=== PATIENT | male | born 1960 | race Caucasian/White ===

== ENCOUNTER 2024-02-11 20:39 | Emergency (ER) | payer OTHER ==
[2024-02-11] MEDS ORDERED: NA CHLORIDE 0.9% 1,000 ML ONE (21:38)
--- NOTE | 2024-02-11 21:47 | RAD REPORT ---
EXAM DESCRIPTION: Cande Single View02/11/2024 9:33 pm CLINICAL HISTORY: CHEST PAIN COMPARISON: No comparisons TECHNIQUE: Portable AP view of the chest. FINDINGS: The lungs are clear. No pneumothorax or effusion. The cardiomediastinal contours are unre markable. IMPRESSION: No acute cardiopulmonary process.
--- NOTE | 2024-02-11 21:54 | RAD REPORT ---
EXAM DESCRIPTION: CT - Head Brain Wo Cont - 02/11/2024 9:29 pm CLINICAL HISTORY: DIZZINESS COMPARISON: No comparisons TECHNIQUE: Noncontrast head CT images were obtained without IV contrast. Multiplanar reformats were generated and reviewed. All CT scans are performed using dose optimization technique as appropriate and may include automated exposure control or mA/KV adjustment according to patient size. FINDINGS: No intracranial hemorrhage, mass, or edema. Midline structures are unremarkable. Normal ventricular caliber for age. Bonds-white matter differentiation is preserved, without evidence of acute infarct. No abnormal extra- axial fluid collections. Mastoid air cells and visualized portions of the paranasal sinuses are clear. No acute bony findings. Deformities along the nasal bones bilaterally suggesting sequelae of remote t rauma. IMPRESSION: No evidence of an acute intracranial process.
[2024-02-11 22:05] LABS: Absolute Eosinophils 0.1 K/uL (0-0.5); Absolute Monocytes 0.5 K/uL (0.1-1.3); Absolute Neutrophil 4.7 K/uL (1.8-8.0); Basophils % 0.7 % (0-1.3); Eosinophils % 1.7 % (0-4.4); Hematocrit 43.8 % (39.6-49.0); MCH 30.8 pg (27.0-35.0); MCHC 34.4 g/dL (32.0-36.0); MCV 89.6 fL (80-100); MPV 6.5 fL (7.6-11.3); Monocytes % 7.2 % (3.3-12.3); Neutrophils % 74.4 % (41.7-73.7); Platelets 203 thou/uL (152-406); RBC Red Blood Cell Count 4.88 M/uL (4.33-5.43); Red Cell Distribution Width 13.3 % (12.1-15.2)
[2024-02-11 22:19] LABS: PT Prothrombin Time 11.7 SECONDS (9.5-12.5); Protime INR 1.07
[2024-02-11 22:26] LABS: Albumin 3.8 g/dL (3.4-5.0); Albumin/Globulin Ratio 1.3 (1.1-1.8); Anion Gap 8.8 mEq/L (5.0-15.0); Bilirubin Direct 0.2 mg/dL (0-0.2); Bilirubin Indirect, Calculated 0.5 mg/dL (0.2-0.8); Bilirubin Total 0.7 mg/dL (0.2-1.0); Globulin 2.9 g/dL (2.3-3.5); Magnesium 2.2 mg/dL (1.6-2.4); Potassium 3.8 mEq/L (3.5-5.1); Protein, Total 6.7 g/dL (6.4-8.2); Troponin High Sensitivity 12.3 pg/mL (<58.9)
[2024-02-12 00:29] LABS: Band Neutrophils 3 % (0-1); Blood Morphology Comment NOT SEEN (NOT SEEN); Differential Total Cells Count 100; Lymphocytes 9 % (15-42); Monocytes 2 % (0-10); Platelet Estimate ADEQ; Reactive Lymphocytes 9 %; Segmented Neutrophils 77 % (40-80)
--- NOTE | 2024-02-12 00:37 | ER ---
Nurse's Notes [facility] Name: Stanislav Rivas Age: 63 yrs Sex: Male : 1960 Arrival Date: 02/11/2024 Time: 20:39 Bed 16 Private MD: Diagnosis: Near syncope Presentation: 02/10 20:56 Chief complaint: Patient states: [place] [facility] [place], while using the 4 restroom I got dizzy. Purchased the item I wanted. I went home checked my bp, it was 170/90. I noticed my left arm felt cold, I have a slight chest pain. 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 Coronavirus screen: At this time, the client does not indicate any symptoms associated with coronavirus-19. Ebola Screen: No symptoms or risks identified at this time. Initial Sepsis Screen: Does the patient meet any 2 criteria? No. Patient's initial sepsis screen is negative. Does the patient have a suspected source of infection? No. Patient's initial sepsis screen is negative. Risk Assessment: Do you want to hurt yourself or someone else? Patient reports no desire to harm self or others. Onset of symptoms was February 11, 2024. Transition of care: patient was not received from another setting of care. 20:56 Method Of Arrival: Ambulatory [facility] 20:56 Acuity: LANCE 2 jb4 Historical: - Allergies: 21:00 No Known Allergies; jb4 - PMHx: 21:00 HTN; jb4 - PSHx: 21:00 None; jb4 - Immunization history:: Adult Immunizations up to date. - Infectious Disease History:: Denies. - Social history:: Smoking status: Patient denies any tobacco usage or history of. Screenin:44 [facility] ED Fall Risk Assessment (Adult) History of falling in the last 3 months, ha1 including since admission No falls in past 3 months (0 pts) Confusion or Disorientation No (0 pts) Intoxicated or Sedated No (0 pts) Impaired Gait No (0 pts) Mobility Assist Device Used No (0 pt) Altered Elimination No (0 pt) Score/Fall Risk Level 0 - 2 = Low Risk Oriented to surroundings, Maintained a safe environment, Hourly rounding (assess needs \T\ fall precautionary measures) done. Abuse screen: Denies threats or abuse. Denies injuries from another. Nutritional screening: No deficits noted. Tuberculosis screening: No symptoms or risk factors identified. Assessment: 20:56 General: Appears comfortable, Behavior is calm, cooperative. Pain: Denies pain. Neuro: ha1 Level of Consciousness is awake, alert, obeys commands, Oriented to person, place, time, situation, Reports dizziness. Cardiovascular: Capillary refill < 3 seconds Patient's skin is warm and dry. Respiratory: Airway is patent Respiratory effort is even, unlabored, Respiratory pattern is regular, symmetrical. GI: No signs and/or symptoms were reported involving the gastrointestinal system. Derm: Skin is pink, warm \T\ dry. Derm: Musculoskeletal: Circulation, motion, and sensation intact. Range of motion: intact in all extremities. 21:43 Reassessment: Patient and/or family updated on plan of care and expected duration. Pain ha1 level reassessed. Patient is alert, oriented x 3, equal unlabored respirations, skin warm/dry/pink. 22:40 Reassessment: Patient and/or family updated on plan of care and expected duration. Pain ha1 level reassessed. Patient is alert, oriented x 3, equal unlabored respirations, skin warm/dry/pink. DR. SLADE IN THE ROOM. 23:20 Reassessment: Patient and/or family updated on plan of care and expected duration. Pain ha1 level reassessed. Patient is alert, oriented x 3, equal unlabored respirations, skin warm/dry/pink. 02/11 00:20 Reassessment: Patient and/or family updated on plan of care and expected duration. Pain ha1 level reassessed. Patient is alert, oriented x 3, equal unlabored respirations, skin warm/dry/pink. Patient states feeling better. Patient states symptoms have improved. Vital Signs: 02/10 20:56 BP 157 / 82; Pulse 62; Resp 16; Pulse Ox 99% on R/A; Weight 91.63 kg (R); Height 5 ft. jb4 10 in. (R); Pain 11/08; 21:00 BP 139 / 71; Pulse 69; Resp 17 S; Pulse Ox 98% on R/A; ha1 21:55 BP 145 / 91; Pulse 58; Resp 18 S; Pulse Ox 98% ; ha1 22:57 BP 165 / 85; Pulse 62; Resp 18 S; Pulse Ox 96% on R/A; ha1 23:15 BP 150 / 81; Pulse 63; Resp 17 S; Pulse Ox 96% on R/A; ha1 02/11 00:05 BP 173 / 100; Pulse 60; Resp 17 S; Pulse Ox 99% on R/A; ha1 00:49 BP 160 / 93; Pulse 60; Resp 17 S; Temp 97.9; Pulse Ox 97% on R/A; ha1 02/10 20:56 Body Mass Index 28.98 (91.63 kg, 177.8 cm) jb4 02/10 20:56 Pain Scale: Adult jb4 ED Course: 02/09 20:56 Patient has correct armband on for positive identification. Placed in gown. Bed in low ha1 position. Call light in reach. Side rails up X 1. 02/10 20:43 Patient arrived in ED. im 20:48 Brea Slade MD is Attending Physician. sp3 21:00 Triage completed. jb4 21:00 Arm band placed on right wrist. jb4 21:00 Client placed on continuous cardiac and pulse oximetry monitoring. NIBP monitoring ha1 applied. bus driver/monitor on. 21:00 Door closed. Noise minimized. Warm blanket given. Pillow given. ha1 21:10 EKG done, by smt technician. reviewed by Brea Slade MD. cp4 21:20 Saranya Johnston, RN is Primary Nurse. ha1 21:30 Inserted saline lock: 20 gauge in left antecubital area, using aseptic technique. Blood ha1 collected. 21:31 CT Head Brain wo Cont In Process Unspecified. EDMS 21:35 XRAY Chest (1 view) In Process Unspecified. EDMS 21:55 Basic Metabolic Panel Sent. ha1 21:56 CBC with Diff Sent. ha1 21:56 LFT's Sent. ha1 21:56 Magnesium Sent. ha1 21:56 NT PRO-BNP Sent. ha1 21:56 PT-INR Sent. ha1 21:56 Troponin HS Sent. ha1 02/11 00:50 No provider procedures requiring assistance completed. IV discontinued, intact, ha1 bleeding controlled, No redness/swelling at site. Pressure dressing applied. 00:51 Provided Education on: FOLLOW [employer] . ha1 Administered Medications: 02/10 21:30 Drug: NS 0.9% IV 1000 ml IV at 1 bolus Per protocol; 1000 mL bolus Route: IV; Rate: 1 ha1 bolus; Site: left antecubital; 02/11 00:48 Follow up: Response: No adverse reaction; IV Status: Completed infusion; IV Intake: ha1 1000ml Medication: 02/10 22:59 VIS not applicable for this client. ha1 Intake: 02/11 00:48 IV: 1000ml; Total: 1000ml. ha1 Outcome: 00:35 Discharge ordered by sp3 00:50 Discharged to home ambulatory, 1 00:50 Condition: stable 00:50 Discharge instructions given to patient, Instructed on discharge instructions, follow up and referral plans. Demonstrated understanding of instructions, follow-up care, 00:51 Patient left the ED. 1 Signatures: Dispatcher [employer] Morgan Lowe, RN RN jb4 Brea Slade MD MD sp3 Saranya Johnston RN RN ha1 Rosa Giraldo Christina cp4
--- NOTE | 2024-02-12 00:37 | EDPHYS ---
Physician Documentation [facility] Name: Stanislav Rivas Age: 63 yrs Sex: Male : 1960 Arrival Date: 02/11/2024 Time: 20:39 Bed 16 Private MD: ED Physician Brea Slade HPI: 02/10 21:22 This 63 yrs old Male presents to ER via Ambulatory with complaints of General Weakness, sp3 High Blood Pressure, Low heart rate, Blurred Vision. 21:22 63-year-old male with history of hypertension presents with generalized weakness, sp3 dehydration and now resolved left arm heaviness as he put it. 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 Patient definitely thinks he overdid it and then after this while he was at the gas station, he had a near syncopal episode which at that point he decided he needed to come in to get evaluated. All symptoms have now resolved. He denies any headache, neck pain, ongoing chest pain, shortness of breath, back pain, abdominal pain, nausea, vomiting, diarrhea, full syncope, focal neurological deficit including speech changes, weakness, facial droop, memory loss or any other symptoms at this time. Patient denies any illicit drug use, smoking or other substances.. Historical: - Allergies: 21:00 No Known Allergies; jb4 - PMHx: 21:00 HTN; jb4 - PSHx: 21:00 None; jb4 - Immunization history:: Adult Immunizations up to date. - Infectious Disease History:: Denies. - Social history:: Smoking status: Patient denies any tobacco usage or history of. ROS: 21:25 Constitutional: Negative for fever, chills, and weight loss, Eyes: Negative for injury, sp3 pain, redness, and discharge, ENT: Negative for injury, pain, and discharge, Neck: Negative for injury, pain, and swelling, Respiratory: Negative for shortness of breath, cough, wheezing, and pleuritic chest pain, Abdomen/GI: Negative for abdominal pain, nausea, vomiting, diarrhea, and constipation, Back: Negative for injury and pain, MS/Extremity: Negative for injury and deformity, Neuro: Negative for headache, weakness, numbness, tingling, and seizure, Psych: Negative for depression, anxiety, suicide ideation, homicidal ideation, and hallucinations, Allergy/Immunology: Negative for hives, rash, and allergies, Endocrine: Negative for neck swelling, polydipsia, polyuria, polyphagia, and marked weight changes, Hematologic/Lymphatic: Negative for swollen nodes, abnormal bleeding, and unusual bruising, 21:25 All other systems are negative, Exam: 21:25 Constitutional: This is a well developed, well nourished patient who is awake, alert, sp3 and in no acute distress. Head/Face: Normocephalic, atraumatic. Eyes: Pupils equal round and reactive to light, extra-ocular motions intact. Lids and lashes normal. Conjunctiva and sclera are non-icteric and not injected. Cornea within normal limits. Periorbital areas with no swelling, redness, or edema. ENT: Nares patent. No nasal discharge, no septal abnormalities noted. External auditory canals are clear. Oropharynx with no redness, swelling, or masses, exudates, or evidence of obstruction, uvula midline. Mucous membranes moist. Neck: Trachea midline, no thyromegaly or masses palpated, and no cervical lymphadenopathy. Supple, full range of motion without nuchal rigidity, or vertebral point tenderness. No Meningismus. Chest/axilla: Normal chest wall appearance and motion. Nontender with no deformity. No lesions are appreciated. Cardiovascular: Regular rate and rhythm with a normal S1 and S2. No gallops, murmurs, or rubs. Normal PMI, no JVD. No pulse deficits. Respiratory: Lungs have equal breath sounds bilaterally, clear to auscultation and percussion. No rales, rhonchi or wheezes noted. No increased work of breathing, no retractions or nasal flaring. Abdomen/GI: Soft, non-tender, with normal bowel sounds. No distension or tympany. No guarding or rebound. No evidence of tenderness throughout. Back: No spinal tenderness. No costovertebral tenderness. Full range of motion. Skin: Warm, dry with normal turgor. Normal color with no rashes, no lesions, and no evidence of cellulitis. MS/ Extremity: Pulses equal, no cyanosis. Neurovascular intact. Full, normal range of motion. Neuro: Awake and alert, GCS 15, oriented to person, place, time, and situation. Cranial nerves II-XII grossly intact. Motor strength 5/5 in all extremities. Sensory grossly intact. Cerebellar exam normal. Normal gait. Psych: Awake, alert, with orientation to person, place and time. Behavior, mood, and affect are within normal limits. 21:25 ECG was reviewed by the Attending Physician. EKG demonstrates normal sinus rhythm at 64 bpm with normal intervals, normal QRS, normal axis, nonspecific ST's ST changes without evidence of acute ischemia. Vital Signs: 20:56 BP 157 / 82; Pulse 62; Resp 16; Pulse Ox 99% on R/A; Weight 91.63 kg (R); Height 5 ft. jb4 10 in. (R); Pain 11/08; 21:00 BP 139 / 71; Pulse 69; Resp 17 S; Pulse Ox 98% on R/A; ha1 21:55 BP 145 / 91; Pulse 58; Resp 18 S; Pulse Ox 98% ; ha1 22:57 BP 165 / 85; Pulse 62; Resp 18 S; Pulse Ox 96% on R/A; ha1 23:15 BP 150 / 81; Pulse 63; Resp 17 S; Pulse Ox 96% on R/A; ha1 02/11 00:05 BP 173 / 100; Pulse 60; Resp 17 S; Pulse Ox 99% on R/A; ha1 00:49 BP 160 / 93; Pulse 60; Resp 17 S; Temp 97.9; Pulse Ox 97% on R/A; ha1 02/10 20:56 Body Mass Index 28.98 (91.63 kg, 177.8 cm) [facility] 02/10 20:56 Pain Scale: Adult [facility] MDM: 02/10 20:59 Patient medically screened. sp3 21:26 Data reviewed: vital signs, nurses notes, lab test result(s), EKG, radiologic studies. sp3 ED course: 63-year-old male with vague symptoms of generalized weakness and dehydration. Differential diagnosis includes dehydration, acute coronary syndrome, electrolyte abnormality, vagal episode, viral syndrome, among others. I am not highly suspicious for CVA/TIA spectrum, intracranial hemorrhage or other abnormality, sepsis, shock or any other critical process. Workup will be broad and include EKG, chest x-ray, CT scan of the head, and general laboratory values including troponin. If workup is negative, we will safely discharge him home assuming he feels improved after second troponin. Normal saline 1 L bolus to be given. Disposition pending workup and patient course.. 02/10 20:58 Order name: Basic Metabolic Panel; Complete Time: 22:52 sp3 02/10 20:58 Order name: CBC with Diff; Complete Time: 00:34 sp3 02/10 20:58 Order name: LFT's; Complete Time: 22:52 sp3 02/10 20:58 Order name: Magnesium; Complete Time: 22:52 sp3 02/10 20:58 Order name: NT PRO-BNP; Complete Time: 22:52 sp3 02/10 20:58 Order name: PT-INR; Complete Time: 22:52 sp3 02/10 20:58 Order name: Troponin HS; Complete Time: 22:52 sp3 02/10 22:20 Order name: Manual Differential; Complete Time: 00:34 EDMS 02/10 23:30 Order name: Troponin High Sensitivity; Complete Time: 00:34 ha1 02/10 20:58 Order name: XRAY Chest (1 view); Complete Time: 21:55 sp3 02/10 21:12 Order name: CT Head Brain wo Cont; Complete Time: 21:55 sp3 02/10 20:58 Order name: Cardiac monitoring; Complete Time: 21:09 sp3 02/10 20:58 Order name: EKG - Nurse/Tech; Complete Time: 21:09 sp3 02/10 20:58 Order name: IV Saline Lock; Complete Time: 21:55 sp3 02/10 20:58 Order name: Labs collected and sent; Complete Time: 21:55 sp3 02/10 20:58 Order name: O2 Per Protocol; Complete Time: 21:09 sp3 02/10 20:58 Order name: O2 Sat Monitoring; Complete Time: 21:09 sp3 Administered Medications: 21:30 Drug: NS 0.9% IV 1000 ml IV at 1 bolus Per protocol; 1000 mL bolus Route: IV; Rate: 1 ha1 bolus; Site: left antecubital; 02/11 00:48 Follow up: Response: No adverse reaction; IV Status: Completed infusion; IV Intake: ha1 1000ml Disposition Summary: 02/12/24 00:35 Discharge Ordered Notes: Location: Home sp3 Condition: Stable sp3 Diagnosis - Near syncope sp3 Followup: sp3 - With: Private Physician - When: Upon discharge from the Emergency Department - Reason: Continuance of care Discharge Instructions: - Discharge Summary Sheet sp3 - Near-Syncope sp3 Forms: - Medication Reconciliation Form sp3 - Thank You Letter sp3 - Antibiotic Education sp3 - Prescription Opioid Use sp3 - Patient Portal Instructions sp3 - Leadership Thank You Letter sp3 Signatures: Dispatcher [employer] EDMS Morgan Smith, RN RN jb4 Brea Slade MD MD sp3 Saranya Johnston RN RN ha1 Corrections: (The following items were deleted from the chart) 02/10 20:59 20:59 BASIC METABOLIC PANEL+C.LAB.BRZ ordered. EDMS EDMS 20:59 20:59 CBC+H.LAB.BRZ ordered. EDMS EDMS 20:59 20:59 HEPATIC FUNCTION+C.LAB.BRZ ordered. EDMS EDMS 20:59 20:59 MAGNESIUM+C.LAB.BRZ ordered. EDMS EDMS 20:59 20:59 PROBNP+C.LAB.BRZ ordered. EDMS EDMS 20:59 20:59 PROTIME (+INR)+COAG.LAB.BRZ ordered. EDMS EDMS 20:59 20:59 Troponin High Sensitivity+C.LAB.BRZ ordered. EDMS EDMS 20:59 20:59 Chest Single View+RAD.RAD.BRZ ordered. EDMS EDMS 21:12 21:12 Head Brain Wo Cont+CT.RAD.BRZ ordered. EDMS EDMS 23:30 23:30 Troponin High Sensitivity+C.LAB.BRZ ordered. EDMS EDMS 23:48 21:27 Troponin High Sensitivity+C.LAB.BRZ ordered. EDMS EDMS
[2024-02-12 05:19] VITALS: BP 160/93; O2SAT 97
[2024-02-12 05:20] VITALS: TEMP 97.9
== END 2024-02-12 00:51 | disposition home or self-care (01) ==
LOC: ER 20:39
DX: R55 Syncope and collapse (principal); R53.1 Weakness; I10 Essential (primary) hypertension
CPT/HCPCS: 96361; 93005; 85025; 80048; 36415; 83735; 85610; 80076; 84484 ×2; 83880; 70450; 71045; 96360; 99285; J7030